=== PATIENT | female | born 1950 | race Caucasian/White ===

== ENCOUNTER 2019-05-24 11:09 | Emergency (ER) | payer MEDICARE, OTHER ==
[2019-05-24] MEDS ORDERED: Lidocaine 1% 20 ML MDV INJECT ONE (11:20)
[2019-05-24] MEDS ORDERED: Diphtheria,Pertussis(Acell),Tetanus Vaccine 0.5 ML Syringe IM ONE (11:26)
--- NOTE | 2019-05-24 11:26 | EDM.PDOC ---
ED HPI GENERAL MEDICAL PROBLEM - General Chief Complaint: Laceration Stated Complaint: Bilateral Knee Lacs Time Seen by Provider: 05/24/19 11:20 Source of Information: Reports: Patient History Limitations: Reports: No Limitations - History of Present Illness INITIAL COMMENTS - FREE TEXT/NARRATIVE: This patient is a 69 year old female that presents to the ER. Patient reports that she was out deer hunting and slipped on ice falling down n both knees on ice and rocks. Patient reports having open wounds to bilateral knees. Patient denies being on blood thinner. Patient reports only injury is to knees. Patient denies hitting head, loc, n, v, vision changes. She is alert and oriented. She ambulated in without difficulty. Onset: Today Onset Date: 05/24/19 Duration: Hour(s): (2) Location: Reports: Lower Extremity, Right Severity: Mild Improves with: Reports: None Worsens with: Reports: None Associated Symptoms: Denies: Confusion, Chest Pain, Cough, Diaphoresis, Headaches, Nausea/Vomiting, Seizure, Shortness of Breath, Syncope, Weakness r knee Pain Score (Numeric/FACES): 5 - Related Data Allergies Allergy/AdvReac Type Severity Reaction Status Date / Time latex Allergy Hives Verified 05/24/19 11:13 Sulfa (Sulfonamide Allergy Hives Verified 05/24/19 11:13 Antibiotics) Home Meds: Home Meds Albuterol Sulfate [Albuterol Sulfate Hfa] 8.5 gm IH Q4HR PRN 05/24/19 [History] Aspirin 325 mg PO DAILY 05/24/19 [History] Brimonidine/Timolol [Combigan 0.2%/0.5% Ophth Soln] 5 ml .XX BID 05/24/19 [ History] Levothyroxine 125 mcg PO ACBREAKFAST 05/24/19 [History] Montelukast [Singulair] 10 mg PO DAILY 05/24/19 [History] Rosuvastatin Calcium 20 mg PO DAILY 05/24/19 [History] Sertraline [Zoloft] 100 mg PO DAILY 05/24/19 [History] hydrOXYzine pamoate [Hydroxyzine Pamoate] 25 mg PO TID PRN 05/24/19 [History] metFORMIN HCl [Metformin HCl ER] 500 mg PO DAILY 05/24/19 [History] ED ROS GENERAL - Review of Systems Review Of Systems: See Below Constitutional: Reports: No Symptoms HEENT: Reports: No Symptoms Respiratory: Reports: No Symptoms Cardiovascular: Reports: No Symptoms GI/Abdominal: Reports: No Symptoms : Reports: No Symptoms Musculoskeletal: Reports: Joint Pain (right knee) Skin: Reports: Wound (right and left knee) Neurological: Reports: No Symptoms. Denies: Confusion, Dizziness, Headache, Numbness, Seizure, Syncope, Tingling, Difficulty Walking, Weakness Psychiatric: Reports: No Symptoms Hematologic/Lymphatic: Reports: No Symptoms Immunologic: Reports: No Symptoms ED EXAM, SKIN/RASH Exam: See Below Exam Limited By: No Limitations General Appearance: Alert, WD/WN, No Apparent Distress Eye Exam: Bilateral Eye: Normal Inspection, PERRL Ears: Normal External Exam, Normal Canal, Hearing Grossly Normal, Normal TMs Nose: Normal Inspection, Normal Mucosa, No Blood Throat/Mouth: Normal Inspection, Normal Lips, Normal Teeth, Normal Gums, Normal Oropharynx, Normal Voice, No Airway Compromise Head: Atraumatic, Normocephalic Neck: Normal Inspection, Supple, Non-Tender, Full Range of Motion Respiratory/Chest: No Respiratory Distress, Lungs Clear, Normal Breath Sounds, No Accessory Muscle Use Cardiovascular: Normal Peripheral Pulses, Regular Rate, Rhythm, No Edema, No Gallop, No JVD, No Murmur, No Rub Peripheral Pulses: 2+: Radial (L), Radial (R), Posterior Tibial (L), Posterior Tibial (R), Dorsalis Pedis (L), Dorsalis Pedis (R) GI/Abdominal: Soft, Non-Tender Back Exam: Normal Inspection, Full Range of Motion. No: CVA Tenderness (L), CVA Tenderness (R), Decreased Range of Motion, Muscle Spasm, Paraspinal Tenderness, Vertebral Tenderness Extremities: Normal Range of Motion, No Pedal Edema, Normal Capillary Refill, Other (rght nee mild tenderness, swelling. laceration: Left knee, small avulsion of skin. No pain, tenderness. ). No: Limited Range of Motion Neurological: Alert, Oriented Psychiatric: Normal Affect, Normal Mood Skin: Warm, Dry, Normal Color, No Rash, Wound/Incision (left knee avulsion of skin anterior no suture. Right knee laceration requiring repair. ) Location, Skin: Lower Extremity, Right, Lower Extremity, Left Associated features: Tenderness (mild right anterior knee. None on left.) ED SKIN PROCEDURES - Laceration/Wound Repair Right Anterior Knee Appearance: Subcutaneous Distal NVT: Neuro & Vascular Intact, No Tendon Injury Anesthetic Type: Local Local Anesthesia - Lidocaine (Xylocaine): 1% Plain Local Anesthetic Volume: 5cc Skin Prep: Chlorhexidine (Hibiciens) Saline Irrigation (cc's): 40 Exploration/Debridement/Repair: Wound Explored, In a Bloodless Field, Explored to Base, No Foreign Material Found, Wound Margins Revised Closed with: Mcbrides Lac/Wound length In cm: 10 # of Sutures: 15 (rebeka) Drain Placement: No Tetanus Status Addressed: Yes Complications: No Course - Vital Signs Last Recorded V/S: Last Vital Signs Temp 98.9 F 05/24/19 11:10 Pulse 79 05/24/19 11:10 Resp 16 05/24/19 11:10 BP 158/88 H 05/24/19 11:10 Pulse Ox 97 05/24/19 11:10 - Orders/Labs/Meds Orders: Active Orders 24 hr Category Date Time Status Vaccines to be Administered [RC] PER UNIT ROUTINE Care 05/24/19 11:26 Active Knee 3V Rt [CR] Stat Exams 05/24/19 11:20 Taken Meds: Medications Discontinued Medications Generic Name Dose Route Start Last Admin Trade Name Freq PRN Reason Stop Dose Admin Diphtheria/Tetanus/Acell Pertussis 0.5 ml 05/24/19 11:26 05/24/19 11:46 Adacel IM 05/24/19 11:27 0.5 ml .ONCE ONE Administration Lidocaine HCl 20 ml 05/24/19 11:20 05/24/19 11:46 Xylocaine 1% INJECT 05/24/19 11:21 20 ml ONETIME ONE Administration - Radiology Interpretation Free Text/Narrative:: Right nee xray: no fb, no fx, no dislocation. There is soft tissue injury Departure - Departure Time of Disposition: 12:05 Disposition: Home, Self-Care 01 Condition: Fair Clinical Impression: Laceration - Discharge Information *PRESCRIPTION DRUG MONITORING PROGRAM REVIEWED*: Not Applicable *COPY OF PRESCRIPTION DRUG MONITORING REPORT IN PATIENT ANA MARIA: Not Applicable Instructions: Laceration Care, Adult, [id number], Stitches, Rebeka, or Adhesive Wound Closure, [id number] Referrals: PCP,None [Primary Care Provider] - Forms: ED Department Discharge Additional Instructions: Followup with your primary care provider next saturday for evaluation of staple removal Return to the ER for worsening of condition or any emergent concerns such as fever, drainage, vomiting, redness, or any concerns wash the area twice a day with soap and water, rinse, pat dry, keep covered, may apply neosporin Rest Ice Elevate Isreal wrap as needed - My Orders Last 24 Hours: My Active Orders 05/24/19 11:20 Knee 3V Rt [CR] Stat 05/24/19 11:26 Vaccines to be Administered [RC] PER UNIT ROUTINE - Assessment/Plan Last 24 Hours: My Active Orders 05/24/19 11:20 Knee 3V Rt [CR] Stat 05/24/19 11:26 Vaccines to be Administered [RC] PER UNIT ROUTINE Plan: PLEASE SEE RN NOTE FOR PFSH
== END 2019-05-24 12:20 | disposition home or self-care (01) ==
LOC: CC.ED 11:09
DX: S81.011A Laceration without foreign body, right knee, initial encounter (principal); Z23 Encounter for immunization; Z79.82 Long term (current) use of aspirin; Z79.899 Other long term (current) drug therapy; Z88.2 Allergy status to sulfonamides; Z91.040 Latex allergy status; W00.0XXA Fall on same level due to ice and snow, initial encounter
CPT/HCPCS: 12004; 73562-RT; 90471; 90715; 99283; 99283-25; J2001